=== PATIENT | male | born 1970 | race Caucasian/White ===

== ENCOUNTER 2020-10-06 07:10 | Outpatient (REF) | payer OTHER, SELFPAY ==
[2020-10-06 07:51] LABS: Hematocrit 42.2 % (42-52); Hemoglobin 14.2 g/dl (14.0-18.0); Mean Corpuscular HGB Conc 33.6 g/dl (31.0-36.0); Mean Corpuscular Hemoglobin 29.8 pg (27.0-33.0); Mean Corpuscular Volume 88.5 fL (80-98); Mean Platelet Volume 9.5 fL (9.4-12.4); Platelet Count 226 X10*3/uL (160-400); Red Blood Count 4.77 X10*6/uL (4.60-5.80); Red Cell Distribution Width 12.7 % (11.0-16.0)
[2020-10-06 08:08] LABS: Glucose Urine UA NEG (NEG); Leukocyte Esterase Urine NEG (NEG); Nitrite Urine NEG (NEG); PH 5.5 (5.0-8.0); Specific Gravity - Urine 1.025 (1.005-1.025); Urine Blood NEG (NEG); Urine Ketones NEG (NEG); Urine Protein NEG (NEG-TRACE)
[2020-10-06 08:09] LABS: INTERNATIONAL NORM RATIO 1.1 (0.9-1.1); Prothrombin Time 12.6 SEC (10.8-13.0)
[2020-10-06 08:12] LABS: Appearance Urine CLEAR; Color Urine YELLOW
[2020-10-06 08:30] LABS: Estimated Average Glucose 111 mg/dL; Hemoglobin A1c % 5.5 %
[2020-10-06 08:43] LABS: Alanine Aminotransferase 24 U/L (0-40); Albumin Level 4.3 g/dL (3.5-5.0); Alkaline Phosphatase 66 U/L (39-117); Anion Gap 14 (12-20); Aspartate Amino Transferase 20 U/L (5-37); Bilirubin Direct 0.2 mg/dL (0.0-0.5); Bilirubin Total 0.6 mg/dL (0.0-1.0); Blood Urea Nitrogen 17 mg/dL (9-16); Calcium 8.8 mg/dL (8.4-10.2); Carbon Dioxide 25 mmol/L (22-29); Chloride 107 mmol/L (96-108); Cholesterol 166 mg/dL; Estimated Glomerular Filt Rate > 60; Glucose Random 110 mg/dL (60-115); HDL Cholesterol 40 mg/dL; LDL Cholesterol Calculated 95 mg/dl; Magnesium 2.2 mg/dL (1.6-2.6); Potassium 4.5 mmol/l (3.3-5.1); Sodium 141 mmol/L (135-145); Total Protein 7.1 g/dL (6.5-8.0); Triglycerides 155 mg/dL
== END 2020-10-06 07:11 | disposition home or self-care (01) ==
LOC: HO.LAB 07:10
PROVIDERS: PCP Internal Medicine; Visit Provider Internal Medicine Cardiovascular Disease
DX: I50.42 Chronic combined systolic (congestive) and diastolic (congestive) heart failure (principal); E78.2 Mixed hyperlipidemia; E66.01 Morbid (severe) obesity due to excess calories; G47.33 Obstructive sleep apnea (adult) (pediatric)
CPT/HCPCS: 36415; 80053; 80061; 80076; 81003; 83036; 83735; 84443; 85027; 85610

== ENCOUNTER 2021-10-05 08:17 | Outpatient (REF) | payer OTHER, SELFPAY ==
[2021-10-05 08:28] LABS: MANUAL DIFF FLAG NO
[2021-10-05 09:25] LABS: Basophils Absolute Auto 0.1 X10*3/uL (0.0-0.2); Basophils Percent Auto 0.8 % (0-2); Eosinophils Absolute Auto 0.3 X10*3/uL (0.0-0.4); Hematocrit 41.3 % (42.0-52.0); Hemoglobin 13.5 g/dl (14.0-18.0); Imm Gran Abs Auto 0.03 X10*3/uL (0.00-0.03); Imm Gran Pct Auto 0.4 % (0.0-0.4); Lymphocytes Absolute Auto 1.8 X10*3/uL (1.2-4.9); Lymphocytes Percent Auto 24.3 % (20-40); Mean Corpuscular HGB Conc 32.7 g/dl (31.0-36.0); Mean Corpuscular Hemoglobin 28.8 pg (27.0-33.0); Mean Corpuscular Volume 88.1 fL (80.0-98.0); Mean Platelet Volume 9.4 fL (9.4-12.4); Monocytes Absolute Auto 0.7 X10*3/uL (0.1-1.2); Monocytes Percent Auto 9.7 % (2-11); Neutrophils Absolute Auto 4.6 x10*3/uL (2.0-8.3); Neutrophils Percent Auto 60.8 % (45-73); Platelet Count 260 X10*3/uL (160-400); Red Blood Count 4.69 X10*6/uL (4.60-5.80); Red Cell Distribution Width 13.2 % (11.0-16.0); White Blood Count 7.5 X10*3/uL (4.8-10.8)
[2021-10-05 09:53] LABS: Alanine Aminotransferase 17 U/L (0-40); Alkaline Phosphatase 61 U/L (39-117); Anion Gap 12 (12-20); Aspartate Amino Transferase 15 U/L (5-37); Bilirubin Total 0.4 mg/dL (0.0-1.0); Blood Urea Nitrogen 18 mg/dL (9-16); Calcium 8.9 mg/dL (8.4-10.2); Carbon Dioxide 25 mmol/L (22-29); Chloride 108 mmol/L (96-108); Cholesterol 189 mg/dL; Estimated Glomerular Filt Rate > 60; Glucose Random 87 mg/dL (60-115); HDL Cholesterol 37 mg/dL; LDL Cholesterol Calculated 121 mg/dl; Potassium 4.3 mmol/L (3.3-5.1); Sodium 141 mmol/L (135-145); Total Protein 6.8 g/dL (6.5-8.0); Triglycerides 155 mg/dL
[2021-10-05 10:17] LABS: Free T4 (Free Thyroxine) 0.91 ng/dL (0.71-1.85); Prostate Specific Antigen 0.43 ng/mL (<0.05-4.0); Thyroid Stimulating Hormone 3.79 uIU/mL (0.32-4.0)
== END 2021-10-05 08:18 | disposition home or self-care (01) ==
LOC: HO.LAB 08:17
PROVIDERS: PCP Internal Medicine; Visit Provider Internal Medicine
DX: Z00.00 Encounter for general adult medical examination without abnormal findings (principal); Z12.5 Encounter for screening for malignant neoplasm of prostate
CPT/HCPCS: 36415; 80053; 80061; 84153; 84439; 84443; 85025

== ENCOUNTER 2022-01-15 07:29 | Outpatient (REF) | payer OTHER, SELFPAY ==
[2022-01-15 08:42] LABS: Alanine Aminotransferase 19 U/L (0-40); Albumin Level 4.2 g/dL (3.5-5.0); Alkaline Phosphatase 59 U/L (39-117); Anion Gap 12 (12-20); Aspartate Amino Transferase 13 U/L (5-37); Bilirubin Total 0.5 mg/dL (0.0-1.0); Blood Urea Nitrogen 18 mg/dL (9-16); Calcium 9.3 mg/dL (8.4-10.2); Carbon Dioxide 25 mmol/L (22-29); Chloride 107 mmol/L (96-108); Cholesterol 168 mg/dL; Estimated Glomerular Filt Rate > 60; Glucose Random 116 mg/dL (60-115); HDL Cholesterol 38 mg/dL; LDL Cholesterol Calculated 98 mg/dl; Potassium 4.6 mmol/L (3.3-5.1); Sodium 139 mmol/L (135-145); Triglycerides 160 mg/dL
[2022-01-15 09:02] LABS: Thyroid Stimulating Hormone 4.71 uIU/mL (0.32-4.0)
== END 2022-01-15 07:30 | disposition home or self-care (01) ==
LOC: HO.LAB 07:29
PROVIDERS: PCP Internal Medicine; Visit Provider Nurse Practitioner Family
DX: E78.2 Mixed hyperlipidemia (principal); I50.42 Chronic combined systolic (congestive) and diastolic (congestive) heart failure
CPT/HCPCS: 36415; 80053; 80061; 84443

== ENCOUNTER 2022-04-18 07:42 | Day surgery (SDC) | payer OTHER, SELFPAY ==
[2022-04-10 20:09] VITALS: BMI 38.2
--- NOTE | 2022-04-14 14:10 | HO.ANESPROP2 ---
Documented by User: Jonelle Guerrero NP 04/17/22 09:39 HPI - Anesthesia Eval Consult details Narrative: 51yo M for Colonoscopy ICD in situ for ischemic CMP - interrogation on chart Stable at routine cardiac visit 03/11/2022 PENDING SALE TO [facility] Past Medical History Medical History (Updated 04/11/22 @ 12:05 by Shannan Medellin, RN) Cardiomyopathy CHF (congestive heart failure) Elevated cholesterol HTN (hypertension) Marijuana smoker Myocardial infarct WAYNE on CPAP Surgical History Surgical History (Updated 04/11/22 @ 12:04 by Shannan Medellin RN) AICD (automatic cardioverter/defibrillator) present History of cardiac catheterization History of laparoscopic appendectomy Stented coronary artery Social History Social History Patient Tobacco Use Status: Never used Tobacco Use of substances other than those prescribed or required for medical reasons: Yes Substance Use Frequency: Weekly Are you DNR?: No Advance Directives: No Advance Directives Information Provided: No Advance Directives on File: No Recently lost weight without trying: No Nutrition Risks: No Nutritional Risk Meds Allergies Allergy/AdvReac Type Severity Reaction Status Date / Time No Known Allergies Allergy Verified 04/10/22 20:11 Home Medications Medication Instructions Recorded Confirmed Last Taken Type amiodarone 200 mg tablet 1 tab PO DAILY 04/10/22 04/10/22 04/18/22 History carvedilol 25 mg tablet 12.5 tab PO BID 04/10/22 04/18/22 04/18/22 History dapagliflozin 10 mg tablet 1 tab PO DAILY 04/10/22 04/10/22 Unknown History (Farxiga) ezetimibe 10 mg tablet 1 tab PO DAILY 04/10/22 04/10/22 Unknown History rosuvastatin 40 mg tablet 1 tab PO DAILY 04/10/22 04/10/22 04/17/22 History sacubitril 97 mg-valsartan 103 mg 1 tab PO BID 04/10/22 04/10/22 04/18/22 History tablet (Entresto) spironolactone 25 mg tablet 0.5 tab PO DAILY 04/10/22 04/10/22 Unknown History aspirin 81 mg capsule 81 mg 04/18/22 04/10/22 History Exam Exam Date and Time: April 14, 2022 1410 Height,Weight and Vital Signs: Height 5 ft 5 in Weight 104.326 kg Pertinent Lab Results Pertinent Lab Results: Laboratory Tests 12/18/21 03/30/22 08:26 07:54 WBC 7.5 Hgb 13.5 L Hct 41.3 L Plt Count 260 Sodium 139 Potassium 4.6 Chloride 107 Carbon Dioxide 25 BUN 18 H Creatinine 1.01 Narrative Narrative: ECHO 12/2021 1. Technicially difficult d/t body habitus 2. Limited endocardial borders views. WMA cannot accurately be determined 3. LV markedly dilated 4.Over LV systolic function is moderately impaired with EF 30-40% 5. Indeterminte diastolic function 6. Increased LA pressure 7. Anteroseptal, anterior, anterapical wall is severely hypokinetic/akinetic. 8. RV systolic function is low end of normal 9. Mild thickening of anterior mitral valve leaflet 10. Mild thickening of posterior mitral valve leaflet 11. No evidence of pulmo htn 12. C/w finding of prior 09/2020 echo, no change Assessment and Plan Assessment Anesthesia Assessment: Chart Reviewed Documented by User: Nii Gipson MD 04/18/22 13:25 HPI - Anesthesia Eval Consult details Narrative: 51yo M for Colonoscopy ICD in situ for ischemic CMP - interrogation on chart Stable at routine cardiac visit 03/11/2022 Cardiac stent x1 PMFSH Past Medical History Medical History (Updated 04/11/22 @ 12:05 by Shannan Medellin, OSWALDO) Cardiomyopathy CHF (congestive heart failure) Elevated cholesterol HTN (hypertension) Marijuana smoker Myocardial infarct WAYNE on CPAP Functional capacity: independent ambulation Family History Family history of problems with anesthesia: Yes (Delayed emergence in father ) Surgical History Surgical History (Updated 04/11/22 @ 12:04 by Shannan Medellin, OSWALDO) AICD (automatic cardioverter/defibrillator) present History of cardiac catheterization History of laparoscopic appendectomy Stented coronary artery History of Problems with Anesthesia: No Social History Social History Patient Tobacco Use Status: Never used Tobacco Use of substances other than those prescribed or required for medical reasons: Yes Substance Use Frequency: Weekly Are you DNR?: No Advance Directives: No Advance Directives Information Provided: No Advance Directives on File: No Recently lost weight without trying: No Nutrition Risks: No Nutritional Risk Meds Allergies Allergy/AdvReac Type Severity Reaction Status Date / Time No Known Allergies Allergy Verified 04/10/22 20:11 Home Medications Medication Instructions Recorded Confirmed Last Taken Type amiodarone 200 mg tablet 1 tab PO DAILY 04/10/22 04/10/22 04/18/22 History carvedilol 25 mg tablet 12.5 tab PO BID 04/10/22 04/18/22 04/18/22 History dapagliflozin 10 mg tablet 1 tab PO DAILY 04/10/22 04/10/22 Unknown History (Farxiga) ezetimibe 10 mg tablet 1 tab PO DAILY 04/10/22 04/10/22 Unknown History rosuvastatin 40 mg tablet 1 tab PO DAILY 04/10/22 04/10/22 04/17/22 History sacubitril 97 mg-valsartan 103 mg 1 tab PO BID 04/10/22 04/10/22 04/18/22 History tablet (Entresto) spironolactone 25 mg tablet 0.5 tab PO DAILY 04/10/22 04/10/22 Unknown History aspirin 81 mg capsule 81 mg 04/18/22 04/10/22 History Exam Airway Mallampati Class: III Neck ROM: Full Loose/Missing/Broken Teeth: Yes (Missing lower , fillings) Heart: S1,S2 Lungs: b/l breath sounds Assessment and Plan Assessment Anesthesia Assessment: Anesthesia Plan Discussed Final Anesthetic Review Family History of Problems with Anesthesia: Yes (Delayed emergence in father ) History of Problems with Anesthesia: No NPO: Yes ASA Class: III Final Preanesthetic Review: Meds/Allgs Chart Reviewed, Consent Obtained/Reviewed and Anes Risks/Benef Reviewed Patient Risk: High Procedure Risk: Intermediate Anesthetic Plan Anesthetic Plan: MAC: Disposition: Standard PACU
[2022-04-18 08:39] VITALS: BP 116/72; PULSE 70; RESP 16; TEMP 36.2; O2SAT 97
[2022-04-18] MEDS: Lactated Ringers 1,000 ML 20 ML IVCONT (08:51)
--- NOTE | 2022-04-18 09:21 | MHC.SHP ---
Pre-Procedural Eval Section A Date of Service: 04/18/22 The patient is an INPATIENT: No Changes since office visit: No Cold of Flu in the past 2 weeks, No New Medical Problems, No Changes in Medication and No Patient answered all questions The History & Physical has been completed within 30 days and I have reviewed it.: Yes Section B Chief Complaint: screening Allergies: Allergies Allergy/AdvReac Type Severity Reaction Status Date / Time No Known Allergies Allergy Verified 04/10/22 20:11 Plan I have reviewed the history and physical and performed a pertinent physical examination on my patient. No changes have occurred unless specified.
[2022-04-18 10:09] VITALS: BP 116/78; PULSE 71; RESP 16; TEMP 36.8; O2SAT 95
--- NOTE | 2022-04-18 10:12 | PM.OP ---
Brief Operative Note Date of Service: 04/18/22 Pre-op diagnosis: screening Post-op diagnosis: same Procedure: colonoscopy Surgeon: Nehemias Landon Anesthesia: MAC Was an Heat [employer] Vent [employer] Mechanic used for this Procedure?: No Estimated blood loss (mL): 2 Pathology: other Condition: stable Disposition: PACU
[2022-04-18 10:24] VITALS: BP 130/69; PULSE 68; RESP 18; TEMP 36.8; O2SAT 98
--- NOTE | 2022-04-18 20:44 | OP_ITS ---
SURGEON: Nehemias Landon MD INDICATIONS: Colon cancer screening. PREOPERATIVE DIAGNOSIS: POSTOPERATIVE DIAGNOSIS: PROCEDURE PERFORMED: ESTIMATED BLOOD LOSS: COMPLICATIONS: ANESTHESIA: ASSISTANTS: SPECIMENS: PROCEDURE: Colonoscopy to the terminal ileum with biopsy. MEDICATIONS: Monitored anesthesia care. DESCRIPTION OF PROCEDURE: History and physical performed. The risks and benefits of the procedure were explained to the patient. Informed consent was obtained. The patient was placed in a left lateral decubitus position. A digital rectal exam was performed and it was found to be normal. The Olympus pediatric video colonoscope was introduced into the rectum and advanced to the cecum without difficulty. The cecum was identified by transillumination, palpation, and identification of the ileocecal valve. Examination was performed. The scope was removed. He tolerated the procedure well and was taken to recovery area in stable condition. FINDINGS: The terminal ileum was examined and appeared normal. The visualized colonic mucosa was normal. The quality of the prep was good. A single polyp measuring less than 5 mm was identified in the right colon near the hepatic flexure, removed with biopsy forceps. No other polyps were identified. Retroflexed examination showed small internal hemorrhoids. IMPRESSION: Colon polyp. RECOMMENDATIONS: Follow up the biopsy results. MD GABRIELE Napier/ROSA / [id number]
== END 2022-04-18 11:07 | disposition home or self-care (01) ==
PROVIDERS: PCP Internal Medicine; Visit Provider Internal Medicine Gastroenterology
PROC: 0DJD8ZZ Inspection of Lower Intestinal Tract, Via Natural or Artificial Opening Endoscopic (ICD-10-PCS; CPT 45378; principal; 2022-04-18 09:15)
DX: Z12.11 Encounter for screening for malignant neoplasm of colon (principal); D12.2 Benign neoplasm of ascending colon; K64.8 Other hemorrhoids; I25.10 Atherosclerotic heart disease of native coronary artery without angina pectoris; Z98.61 Coronary angioplasty status; I25.2 Old myocardial infarction; I42.9 Cardiomyopathy, unspecified; I10 Essential (primary) hypertension; Z95.810 Presence of automatic (implantable) cardiac defibrillator; E78.00 Pure hypercholesterolemia, unspecified; G47.33 Obstructive sleep apnea (adult) (pediatric); Z79.82 Long term (current) use of aspirin; Z79.899 Other long term (current) drug therapy; Z87.891 Personal history of nicotine dependence
CPT/HCPCS: 45380; 88305; J2250; J2370

== ENCOUNTER 2025-09-02 07:43 | Outpatient (REF) | payer BC, SELFPAY ==
[2025-09-02 08:54] LABS: Cholesterol 102 mg/dL (<200); HDL Cholesterol 39 mg/dL (>40); Triglycerides 106 mg/dL (<150)
== END 2025-09-02 07:44 | disposition home or self-care (01) ==
LOC: HO.LAB 07:43
PROVIDERS: Visit Provider Physician Assistant Surgical
DX: I25.10 Atherosclerotic heart disease of native coronary artery without angina pectoris (principal)
CPT/HCPCS: 36415; 80061